=== PATIENT | male | born 1955 | race Caucasian/White ===

== ENCOUNTER → 2016-07-30 | Outpatient (CLI) | payer OTHER ==
--- NOTE | 2016-07-30 13:17 | KCIC ---
PROCEDURE Two-view chest HISTORY Closed fracture of right lower anterior rib after a fall 1 week ago. COMPARISON None FINDINGS There are low lung volumes. Mild linear opacities in both lung bases. No dense consolidated infiltrate is seen. No evidence of pneumothorax. No pleural effusion. No obvious displaced fracture is seen. IMPRESSION Low lung volumes with some lung base atelectasis, less likely mild infiltrate. No dense consolidated airspace disease. Electronically signed by: Robert Shin MD (Jul 30, 2016 13:17:02)
== END | disposition home or self-care (01) ==
LOC: KCIC 11:25
PROVIDERS: ATTEND Physician Assistant
DX: S22.31XD Fracture of one rib, right side, subsequent encounter for fracture with routine healing (principal); W19.XXXD Unspecified fall, subsequent encounter; Y92.89 Other specified places as the place of occurrence of the external cause; Y99.8 Other external cause status
CPT/HCPCS: 71020